=== PATIENT | male | born 1970 | race Caucasian/White ===

== ENCOUNTER 2022-12-03 10:42 | Observation (INO) | payer SELFPAY ==
[2022-12-03] VITALS (48 sets, daily range): BP systolic 131–164; BP diastolic 82–98; PULSE 72–108; RESP 2–23; TEMP 36.6–36.8; O2SAT 91–97; BMI 33.7; BMI 37.2
--- NOTE | 2022-12-03 10:58 | ED.GENADUL1 ---
HPI - General Adult General Chief complaint: Dizziness Stated complaint: DIZZINESS Time Seen by Provider: 12/03/22 10:58 Source: patient Mode of arrival: walk-in Limitations: no limitations History of Present Illness HPI narrative: Patient presents to emergency department complaining of feeling where. He states he feels like his perception is not right. He feels like if he was on drugs. He states at 10:30 this morning he was driving and started feeling as if he were dizzy and sick to his perception was not right he was maybe a little bit confused and had different perception of things with his speech is not normal but he knowns exactly what he was doing and feeling that everything was not his normal self. He describes everything as if things were coming fast at him but he is being slower to respond. He states he feels like if he was on an acid trip . He has a history of diabetes his sugar was checked 162. He is moving here from [place]. He denies using any illegal drugs. He denies any trauma. He denies any paresthesias, or weakness. He denies any dysarthria. Denies any difficulty swallowing. He denies any chest pain, shortness of breath. He has not been sick with any nausea, vomiting, diarrhea, or abdominal pain. He states he has a history of early Parkinson's, She has taken medications and see someone at [facility] for the Parkinson's. Related Data Allergies Allergy/AdvReac Type Severity Reaction Status Date / Time No Known Drug Allergies Allergy Verified 12/03/22 10:56 Review of Systems ROS Status of ROS 10 or more systems reviewed and unremarkable except as noted in history and below PFSH PFS Social History Smoking status: Former smoker Exam Narrative Exam Narrative: Nurses notes and vital signs reviewed and patient is not hypoxic. General: Nontoxic, Well-appearing and in no apparent distress. Skin: Warm, dry, no pallor noted. No Rash Head: Normocephalic, atraumatic. Neck: Supple, non-tender. Eye: Pupils are equal, round and EOMI. No scleral icterus. Ears, Nose, Mouth, and Throat: TM clear, no posterior oropharynx erythema or nasal mucosal hypertrophy, uvula is mid-line Oral mucosa is moist Cardiovascular: regular tachycardia without murmur, gallop or rub. Respiratory: No accessory muscle use or respiratory distress. Lungs are clear to auscultation, no wheezing, rales or rhonchi Chest Wall: no tenderness Back: No midline thoracic or lumbar vertebral tenderness. No CVA tenderness Musculoskeletal: normal ROM, no calf or popliteal tenderness, no lower extremity edema/swelling GI: Abdomen is soft, non-distended. Normal bowel sounds. No masses appreciated. No tenderness to palpation. No rebound, guarding, or rigidity noted. Neurological: A&O x4. NIHSS-0 No cranial nerve dysfunction observed. No truncal ataxia. Moves all extremities. Sensation intact. Psychiatric: Cooperative and interactive. Normal mood and affect. Constitutional Vital Signs, click to edit/add: Last Vital Signs Temp 98.1 F 12/03/22 10:50 Pulse 81 12/03/22 15:00 Resp 15 12/03/22 15:00 BP 152/86 H 12/03/22 14:16 Pulse Ox 94 L 12/03/22 15:00 O2 Del Method Room Air 12/03/22 14:16 Course Vital Signs Vital signs: Vital Signs Temperature 98.1 F 12/03/22 10:50 Pulse Rate 108 H 12/03/22 10:50 Respiratory Rate 18 12/03/22 10:50 Blood Pressure 164/98 H 12/03/22 10:50 Pulse Oximetry 94 L 12/03/22 10:50 Oxygen Delivery Method Room Air 12/03/22 10:50 Temperature 98.1 F 12/03/22 10:50 Pulse Rate 81 12/03/22 15:00 Respiratory Rate 15 12/03/22 15:00 Blood Pressure 152/86 H 12/03/22 14:16 Pulse Oximetry 94 L 12/03/22 15:00 Oxygen Delivery Method Room Air 12/03/22 14:16 Medical Decision Making [facility] Narrative Medical decision making narrative: Patient had an IV established, glucose 162. Patient was immediately taken for CT of the brain stroke protocol which was negative. Studies were done. Patient's BUN/creatinine are elevated. He was given 2 L of normal saline. His sister who has arrived states the patient is normally sharp and very outgoing. Sister and niece states this is not like him. He states he seems to be slower to respond. I discussed all of the results with patient, and sister at the bedside. all results of studies were discussed with Dr. Har[facility] who advised the patient can be loaded with aspirin 325 mg and Plavix 300 mg after a swallow study is done. the patient is not a TPA candidate at this time, the patient would not benefit from transferring to the stroke center as he is not a candidate for any acute intervention. The patient was discussed with Dr. Etienne who will admit the patient for the rest of the CVA workup. Lab Data Lab results reviewed: Yes I reviewed the patient's lab results Labs: Lab Results 12/03/22 12/03/22 12/03/22 Range/Units 10:59 11:30 14:05 WBC 7.6 (4.0-11.0) 10^3/uL RBC 4.87 (4.70-6.10) 10^6/uL Hgb 14.2 (14.0-18.0) g/dL Hct 41.2 L (42.0-54.0) % MCV 84.6 (80.0-94.0) fL MCH 29.2 (25.9-34.0) pg MCHC 34.5 (29.9-35.2) g/dL RDW 13.4 (11.0-15.0) % Plt Count 261 (150-450) 10^3/uL MPV 10.3 (9.5-13.5) fL Neut % (Auto) 58.7 (43.0-75.0) % Lymph % (Auto) 30.2 (20.5-60.0) % Kerr % (Auto) 7.6 (1.7-12.0) % Eos % (Auto) 2.4 (0.9-7.0) % Baso % (Auto) 0.8 (0.2-2.0) % Neut # (Auto) 4.5 (1.4-6.5) 10^3/uL Lymph # (Auto) 2.3 (1.2-3.8) 10^3/uL Kerr # (Auto) 0.6 (0.3-0.8) 10^3/uL Eos # (Auto) 0.2 (0.0-0.7) 10^3/uL Baso # (Auto) 0.1 (0.0-0.1) 10^3/uL Abs Immat Gran (auto) 0.02 (0.00-0.03) 10^3/uL Imm/Tot Granulo (auto) 0.3 (0.0-0.5) % PT 10.1 (9.0-11.6) sec INR 0.95 APTT 22.5 (22.3-36.2) sec Sodium 138 (136-145) mmol/L Potassium 4.5 (3.5-5.1) mmol/L Chloride 101 (98-107) mmol/L Carbon Dioxide 24.3 (21.0-32.0) mmol/L Anion Gap 17.2 BUN 24.0 H (7.0-18.0) mg/dL Creatinine 1.34 H (0.70-1.30) mg/dL Est GFR ( Amer) >60 (>=60) Est GFR (Non-Af Amer) 56 L (>=60) BUN/Creatinine Ratio 17.9 Glucose 220 H (74-106) mg/dL Calcium 9.0 (8.5-10.1) mg/dL Total Bilirubin 1.0 (0.2-1.0) mg/dL AST 21 (15-37) U/L ALT 28 (16-63) U/L Alkaline Phosphatase 74 (46-116) U/L Total Creatine Kinase 436 H* (39-308) U/L Myoglobin 242 H (16-96) ng/mL Troponin I High Sens 5.7 (4.0-76.1) pg/mL Total Protein 7.6 (6.4-8.2) g/dL Albumin 3.9 (3.4-5.0) g/dL Globulin 3.7 g/dL Albumin/Globulin Ratio 1.1 Urine Color Yellow (YELLOW) Urine Clarity Clear (CLEAR) Urine pH 6.5 (5.0-9.0) Ur Specific [place] 1.015 (1.005-1.025) Urine Protein 100 A (NEG/TRACE) mg/dL Urine Glucose (UA) 100 A (NEGATIVE) mg/dL Urine Ketones 40 A (NEGATIVE) mg/dL Urine Occult Blood Negative (NEGATIVE) Urine Nitrite Negative (NEGATIVE) Urine Bilirubin Negative (NEGATIVE) Urine Urobilinogen 4.0 A (0.2-1.0) EU/dL Ur Leukocyte Esterase Negative (NEGATIVE) Urine RBC None seen (0-2) #/HPF Urine WBC None seen (NONE SEEN) #/HPF Ur Squamous Epith Cells None seen (NONE/RARE) #/LPF Urine Crystals None seen (None Seen) #/HPF Urine Bacteria None seen (NONE SEEN) #/HPF Urine Casts None seen (NONE SEEN) #/LPF Urine Mucus None seen (NONE SEEN) Ur Culture Indicated? No Urine Opiates Screen Negative (NEGATIVE) Ur Buprenorphine Scrn Negative (NEGATIVE) Ur Oxycodone Screen Negative (NEGATIVE) Urine Methadone Screen Negative (NEGATIVE) Ur Propoxyphene Screen Negative (NEGATIVE) Ur Barbiturates Screen Negative (NEGATIVE) U Tricyclic Antidepress Negative (NEGATIVE) Ur Phencyclidine Scrn Negative (NEGATIVE) Ur Amphetamines Screen Negative (NEGATIVE) U Methamphetamines Scrn Negative (NEGATIVE) U Benzodiazepines Scrn Negative (NEGATIVE) Urine Cocaine Screen Negative (NEGATIVE) U Cannabinoids Screen Positive A (NEGATIVE) POC Glucose 162 H (74-106) mg/dL ECG Data Attestation: I personally reviewed and interpreted this ECG as follows: Interpretation: Sinus tachycardia. No acute ischemic changes. Discharge Plan Discharge Chief Complaint: Dizziness Clinical Impression: Acute confusion, Cerebrovascular accident Patient Disposition: Admitted as Observation Time of Disposition Decision: 16:28 Condition: Good Referrals: Physician,Non-Staff, MD [Primary Care Provider] - 1 week
[2022-12-03 11:07] LABS: Glucometer 162 mg/dL (74-106)
--- NOTE | 2022-12-03 11:14 | ECG_ITS ---
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
--- NOTE | 2022-12-03 11:14 | CT_ITS ---
The [address] [address] Patient Name: SHAWANDA CURTIS MRN: [id number] date: 1970 Sex: M Assigned Patient Location: ER Current Patient Location: ER Accession/Order Number: [id number] Exam Date: 12/03/2022 11:35 Report Date: 12/03/2022 12:11 At the request of: FLORENCIA KIM Procedure: CT stroke head/brain wo con HEAD CT WITHOUT CONTRAST: 12/03/2022 11:35 AM EDT Clinical Data: dizziness, confusion Comparison: No previous Unenhanced axial data from base to vertex. Some beam hardening artifact in the posterior fossa. INTRA-AXIAL: No acute hemorrhage. No obvious acute infarct. EXTRA-AXIAL: No acute hemorrhage. No focal fluid collection. BRAIN VOLUME: Mild atrophy VENTRICLES: No hydrocephalus PARANASAL SINUSES: No air-fluid levels in the included aspects. MASTOIDS: Clear. CALVARIUM: No acute finding. EXTRACALVARIAL: No acute findings CT/CT stroke head/brain wo con IMPRESSION: 1. No distinct evidence of acute intracranial hemorrhage. No distinct evidence of acute infarction. All CT scans at this facility use dose modulation, iterative reconstruction, and/or weight based dosing when appropriate to reduce radiation dose to as low as reasonably achievable. Electronically authenticated by: ABILIO DURAN Date: 12/03/2022 12:11
--- NOTE | 2022-12-03 11:14 | CT_ITS ---
The [address] [address] Patient Name: SHAWANDA CURTIS MRN: [id number] date: 1970 Sex: M Assigned Patient Location: ER Current Patient Location: .MAIN Accession/Order Number: [id number] Exam Date: 12/03/2022 11:35 Report Date: 12/03/2022 15:35 At the request of: FLORENCIA KIM Procedure: CT angio neck CT ANGIOGRAPHY NECK: 12/03/2022 11:35 AM EDT Clinical History:cva Comparison: None available . Contrast-enhanced helically acquired data per protocol. From this dataset volumetric recons in MIP mode were generated and reviewed. 3-D images were rendered on a separate workstation. NASCET criteria were utilized. INNOMINATE: Unremarkable RIGHT SUBCLAVIAN: Somewhat obscured at its origin by artifact from juxtaposed dense venous contrast. Further distally the vessel is unremarkable. RIGHT VERTEBRAL: A medium-sized blood vessel and is grossly unremarkable throughout its extradural course. LEFT SUBCLAVIAN: Widely patent LEFT VERTEBRAL: Modestly to moderately narrowed at its origin. Further distally it is a medium-sized blood vessel and is codominant to its right-sided counterpart. It is unremarkable throughout the rest of its extradural course. RIGHT CAROTID SYSTEM: CCA is widely patent. Very mild soft disease at the bifurcation and proximal ICA. Less than 10% stenosis cervical ICA LEFT CAROTID SYSTEM: CCA is widely patent. Slight soft disease at the bifurcation. 0% stenosis cervical ICA. The ECA is widely patent. CT/CT angio neck IMPRESSION: 1. Left vertebral artery is modestly to moderately narrowed at its origin but is otherwise unremarkable. Vertebral arteries are medium-sized codominant blood vessels. The right is unremarkable. 2. No moderate or significant disease at either cervical carotid system. All CT scans at this facility use dose modulation, iterative reconstruction, and/or weight based dosing when appropriate to reduce radiation dose to as low as reasonably achievable. Electronically authenticated by: ABILIO DURAN Date: 12/03/2022 15:35
--- NOTE | 2022-12-03 11:14 | CT_ITS ---
The [address] [address] Patient Name: SHAWANDA CURTIS MRN: [id number] date: 1970 Sex: M Assigned Patient Location: ER Current Patient Location: ER Accession/Order Number: [id number] Exam Date: 12/03/2022 11:35 Report Date: 12/03/2022 15:42 At the request of: FLORENCIA KIM Procedure: CT angio head CTA HEAD WITH CONTRAST: 12/03/2022 11:35 AM EDT History: cva Comparison: None available . Correlation with neck CTA same date Contrast-enhanced helically acquired data per systemic arterial protocol. From the base data set, volumetric recons in MIP mode were generated and reviewed. 3-D images were rendered on a separate workstation. VERTEBRALS: Patent. The right moderately tapers distal to the takeoff of the PICA. BASILAR : A medium-sized blood vessel and widely patent SUPERIOR CEREBELLARS: Patent and symmetric origins and proximal aspects POSTERIOR CEREBRALS: P1 and P2 segments are patent and symmetric. INTRACRANIAL ICAs: Patent and symmetric. ANTERIOR CEREBRALS: A1 segments are patent with the right slightly dominant over the left. Acomm appears is obliquely oriented and is patent. The A2 segments are patent and symmetric. MIDDLE CEREBRALS: M1 segments are patent. There is concentric moderate to significant narrowing proximal left M1. This is best seen on sagittal recons Insular loops are patent bilaterally. P-COMMS: Not seen OTHER: None CT/CT angio head IMPRESSION: 1. Moderate to significant short segment concentric narrowing left M1. All CT scans at this facility use dose modulation, iterative reconstruction, and/or weight based dosing when appropriate to reduce radiation dose to as low as reasonably achievable. Electronically authenticated by: ABILIO DURAN Date: 12/03/2022 15:42
--- NOTE | 2022-12-03 11:14 | XR_ITS ---
The [address] [address] Patient Name: SHAWANDA CURTIS MRN: [id number] date: 1970 Sex: M Assigned Patient Location: ER Current Patient Location: ER Accession/Order Number: [id number] Exam Date: 12/03/2022 11:32 Report Date: 12/03/2022 12:04 At the request of: FLORENCIA KIM Procedure: XR chest 1V EXAM: XR chest 1V HISTORY: cva COMPARISON: None. TECHNIQUE: Single view of the chest FINDINGS: Low lung volumes. Heart size normal given technique. No focal consolidation, pleural effusion, pulmonary congestion or pneumothorax. XR/XR chest 1V IMPRESSION: No acute findings. Electronically authenticated by: DUNCAN JONAS Date: 12/03/2022 12:04
--- NOTE | 2022-12-03 11:42 | PC.NURSE ---
Pt arrives with a mild shuffling type gait
[2022-12-03 11:54] LABS: Basophils Absolute Auto 0.1 10^3/uL (0.0-0.1); Basophils Percent Auto 0.8 % (0.2-2.0); Eosinophils Absolute Auto 0.2 10^3/uL (0.0-0.7); Eosinophils Percent Auto 2.4 % (0.9-7.0); Hematocrit 41.2 % (42.0-54.0); Hemoglobin 14.2 g/dL (14.0-18.0); Immature Granulocytes Abs Auto 0.02 10^3/uL (0.00-0.03); Immature Granulocytes Pct Auto 0.3 % (0.0-0.5); Lymphocytes Absolute Auto 2.3 10^3/uL (1.2-3.8); Lymphocytes Percent Auto 30.2 % (20.5-60.0); Mean Corpuscular HGB Conc 34.5 g/dL (29.9-35.2); Mean Corpuscular Hemoglobin 29.2 pg (25.9-34.0); Mean Corpuscular Volume 84.6 fL (80.0-94.0); Mean Platelet Volume 10.3 fL (9.5-13.5); Monocytes Absolute Auto 0.6 10^3/uL (0.3-0.8); Monocytes Percent Auto 7.6 % (1.7-12.0); Neutrophils Absolute Auto 4.5 10^3/uL (1.4-6.5); Neutrophils Percent Auto 58.7 % (43.0-75.0); Platelet Count 261 10^3/uL (150-450); Red Blood Count 4.87 10^6/uL (4.70-6.10); Red Cell Distribution Width 13.4 % (11.0-15.0); White Blood Count 7.6 10^3/uL (4.0-11.0)
[2022-12-03 12:06] LABS: INR 0.95; Partial Thromboplastin Time 22.5 sec (22.3-36.2); Prothrombin Time 10.1 sec (9.0-11.6)
[2022-12-03 12:57] LABS: Alanine Aminotransferase 28 U/L (16-63); Albumin Globulin Ratio 1.1; Albumin Level 3.9 g/dL (3.4-5.0); Alkaline Phosphatase 74 U/L (46-116); Anion Gap 17.2; Aspartate Amino Transferase 21 U/L (15-37); BUN Creatinine Ratio 17.9; Carbon Dioxide 24.3 mmol/L (21.0-32.0); Chloride 101 mmol/L (98-107); Estimated GFR (African America >60 (>=60); Estimated GFR (Non-African Ame 56 (>=60); Globulin 3.7 g/dL; Glucose 220 mg/dL (74-106); Potassium 4.5 mmol/L (3.5-5.1); Sodium 138 mmol/L (136-145); Total Protein 7.6 g/dL (6.4-8.2); Troponin I High Sensitivity 5.7 pg/mL (4.0-76.1)
[2022-12-03] MEDS: 0.9 % SODIUM CHLORIDE 1,000 ML 999 ML IV (14:14)
[2022-12-03 14:29] LABS: Bilirubin Urine NEGATIVE (NEGATIVE); Blood Urine NEGATIVE (NEGATIVE); Clarity Urine CLEAR (CLEAR); Color Urine YELLOW (YELLOW); Glucose Urine UA 100 mg/dL (NEGATIVE); Ketones Urine 40 mg/dL (NEGATIVE); Leukocyte Esterase Urine NEGATIVE (NEGATIVE); Nitrite Urine NEGATIVE (NEGATIVE); Protein Urine 100 mg/dL (NEG/TRACE); Specific Gravity Urine 1.015 (1.005-1.025); pH Urine 6.5 (5.0-9.0)
[2022-12-03 14:31] LABS: Urine Microscopic Indicated YES
[2022-12-03 14:36] LABS: Bacteria Urine NONE SEEN #/HPF (NONE SEEN); Cast Seen? NONE SEEN #/LPF (NONE SEEN); Crystals Seen? None Seen #/HPF (None Seen); Mucus Urine NONE SEEN (NONE SEEN); RBC Urine NONE SEEN #/HPF (0-2); Squamous Epithelial Cell Urine NONE SEEN #/LPF (NONE/RARE); Urine Culture Indicated NO; WBC Urine NONE SEEN #/HPF (NONE SEEN)
[2022-12-03 14:41] LABS: Amphetamine Screen Urine NEGATIVE (NEGATIVE); Barbiturates Screen Urine NEGATIVE (NEGATIVE); Benzodiazepines Screen Urine NEGATIVE (NEGATIVE); Buprenorphine Screen Urine NEGATIVE (NEGATIVE); Cannabinoid Screen Urine POSITIVE (NEGATIVE); Cocaine Screen Urine NEGATIVE (NEGATIVE); Methadone Screen Urine NEGATIVE (NEGATIVE); Methamphetamines Screen Urine NEGATIVE (NEGATIVE); Opiate Screen Urine NEGATIVE (NEGATIVE); Oxycodone Screen Urine NEGATIVE (NEGATIVE); Phencyclidine Screen Urine NEGATIVE (NEGATIVE); Tricyclic Antidepressant Urine NEGATIVE (NEGATIVE)
--- NOTE | 2022-12-03 15:12 | PC.NURSE ---
pt states it feels like everything is pulsating .
[2022-12-03] MEDS: 0.9 % SODIUM CHLORIDE 1,000 ML 1000 ML IV (15:35)
[2022-12-03 16:13] LABS: Myoglobin 242 ng/mL (16-96)
[2022-12-03 16:15] LABS: Creatine Kinase 436 U/L (39-308)
--- NOTE | 2022-12-03 16:34 | PC.NURSE ---
Bedside swallow exam done at bedside. Pt swallows well both liquids and solids without any coughing or signs of aspiration. Dr Meza notified
[2022-12-03] MEDS: ASPIRIN 325 MG TABLET PO (16:42)
[2022-12-03] MEDS: CLOPIDOGREL BISULFATE 75 MG TABLET 300 MG PO (16:42)
--- NOTE | 2022-12-03 17:05 | CA_ITS ---
Patient: SHAWANDA CURTIS Exam Date: 12/04/2022 : 1970 Gender:M Ordering : DR Manny Etienne . Admission #: [id number] Family : Order #: [id number] CLICK HERE TO VIEW EXAM ECHOCARDIOGRAM REPORT PROCEDURE: CA ECHO DOPPLER COMPLETE INDICATIONS: Dyspnea, dizziness, diabetes COMPARISON: None. DESCRIPTION: COMPLETE ECHOCARDIOGRAM Real-time transthoracic echocardiography with 2D, M-mode, spectral and color flow Doppler performed. QUALITY: Technical quality was good. LEFT VENTRICLE: Normal chamber size. Mild concentric left ventricular hypertrophy. Normal systolic function. LV EF: Normal left ventricular ejection fraction, (>55%). DIASTOLIC: Diastolic function is indeterminate. ATRIAL SEPTUM: LEFT ATRIUM: Moderate dilatation. RIGHT ATRIUM: Normal chamber size. RIGHT VENTRICLE: Normal chamber size. Normal right ventricular systolic function. TRICUSPID VALVE: Normal mobility and thickness. No stenosis with trivial regurgitation. No evidence of pulmonary hypertension. RVSP 24 mmHg MITRAL VALVE: Normal mobility and thickness. No evidence of mitral valve stenosis. There is no mitral annular calcification. No mitral regurgitation. AORTIC VALVE: Normal trileaflet appearance. No visible sclerosis. Normal leaflet mobility. No evidence of aortic valve stenosis. No aortic regurgitation. AORTIC ROOT: Normal diameter and appearance. PULMONIC VALVE: Not well visualized. No stenosis. No regurgitation. PERICARDIUM: No evidence of pericardial effusion. IVC: Not well visualized. PLEURA: CONCLUSION: 1. Mild concentric left regular hypertrophy with normal systolic function. LVEF is 55 to 60%. 2. Normal right ventricular size and systolic function. 3. No significant valvular dysfunction. 4. Normal right-sided pressures. Adult Echocardiography Procedure Report Left Ventricle LVEDD (3.7 - 5.6 cm): 3.98 cm LVESD (2.2 - 4.0 cm): 2.55 cm LVIVS thickness (0.6 - 1.2 cm): 1.25 cm LVPW thickness (0.5 - 1.0 cm): 1.27 cm LVOT Max Gradient: 3 mm[Hg] Peak Velocity (LVOT): 92.80 cm/s LVOT Diameter 2.80 cm Left Ventricular Ejection Fraction: 55-60 % Left Atrium LA Volume Index (2D A2C): 39867 mm3 Left Atrium Systolic Dimension: 5.30 cm Mitral Valve MV E to A Ratio: 1.10 Mitral Valve A-Wave Peak Velocity: 76.50 cm/s Mitral Valve E-Wave Peak Velocity: 83.90 cm/s Right Ventricle Aorta AO Root Diam: 4.40 cm Aortic Valve AoV Area (Peak Eric): 5.39 cm2 Peak Velocity(Antegrade Flow): 106.00 cm/s Peak Gradient(Antegrade Flow): 4 mm[Hg] Tricuspid Valve Peak Velocity (Regurgitant Flow): 228.00 cm/s Peak Velocity: 50.30 cm/s Pulmonic Valve Peak Velocity: 97.00 cm/s, 106.00 cm/s Peak Gradient: 4 mm[Hg] Right Atrium Dictated by: Ramos Wild M.D. on 12/04/2022 at 17:33 Approved by: Ramos Wild M.D. on 12/04/2022 at 17:35
[2022-12-03] MEDS: LACTATED RINGER'S SOLUTION 1,000 ML 50 ML IV (19:04)
[2022-12-03 22:50] LABS: Glucometer 161 mg/dL (74-106)
[2022-12-03] MEDS: CARVEDILOL 3.125 MG TABLET PO (22:52)
[2022-12-03] MEDS: INSULIN ASPART 300 UNIT/3 ML PEN SUBQ (22:53)
[2022-12-04] VITALS (8 sets, daily range): BP systolic 114; BP diastolic 69; PULSE 60–80; RESP 16; TEMP 36.5; O2SAT 91–93
[2022-12-04 05:12] LABS: Anion Gap 15.3; BUN Creatinine Ratio 12.7; Calcium 8.5 mg/dL (8.5-10.1); Carbon Dioxide 24.2 mmol/L (21.0-32.0); Chloride 104 mmol/L (98-107); Estimated GFR (African America >60 (>=60); Estimated GFR (Non-African Ame >60 (>=60); Glucose 126 mg/dL (74-106); Potassium 3.5 mmol/L (3.5-5.1); Sodium 140 mmol/L (136-145)
[2022-12-04] MEDS: HYOSCYAMINE SULFATE 0.125 MG TAB.SUBL SL ×2 (07:31→10:52)
--- NOTE | 2022-12-04 08:00 | MR_ITS ---
The [address] [address] Patient Name: SHAWANDA CURTIS MRN: [id number] date: 1970 Sex: M Assigned Patient Location: MS Current Patient Location: MS Accession/Order Number: [id number] Exam Date: 12/04/2022 09:40 Report Date: 12/04/2022 10:49 At the request of: RAUL LÓPEZ Procedure: MR head/brain wo con EXAMINATION: MR head/brain wo con HISTORY: AMS COMPARISON: No relevant comparison available. TECHNIQUE: A variety of imaging planes and parameters were utilized for visualization of suspected pathology. Images were performed without contrast. FINDINGS: CEREBRUM: No edema, hemorrhage, mass, acute infarction, or inappropriate atrophy. CEREBELLUM: No edema, hemorrhage, mass, acute infarction, or inappropriate atrophy. BRAINSTEM: No edema, hemorrhage, mass, acute infarction, or inappropriate atrophy. CSF SPACES: Ventricles, cisterns, and sulci are appropriate for age. No hydrocephalus, subarachnoid hemorrhage, or mass. SKULL: No mass or other significant visible lesion. SINUSES: Small mucocele/retention cysts within maxillary sinuses. No fluid levels. ORBITS: Limited views are unremarkable. OTHER: Negative. MR/MR head/brain wo con IMPRESSION: 1. Normal MRI appearance of the brain. No specific findings to account for patient's symptoms. 2. Mild chronic sinusitis. Electronically authenticated by: ELIZA ABBOTT Date: 12/04/2022 10:49
[2022-12-04 08:03] LABS: Creatine Kinase 188 U/L (39-308)
[2022-12-04] MEDS: CARVEDILOL 3.125 MG TABLET PO (08:59)
[2022-12-04] MEDS: ASPIRIN 325 MG TABLET PO (09:30)
[2022-12-04] MEDS: CLOPIDOGREL BISULFATE 75 MG TABLET PO (09:30)
--- NOTE | 2022-12-04 09:35 | US_ITS ---
[address] [address] Patient Name: SHAWANDA CURTIS MRN: [id number] date: 1970 Sex: M Assigned Patient Location: MS Current Patient Location: MS Accession/Order Number: [id number] Exam Date: 12/04/2022 10:00 Report Date: 12/04/2022 10:50 At the request of: RAUL LÓPEZ Procedure: US venous doppler LE LT EXAMINATION: US venous doppler LE LT HISTORY: left leg edema COMPARISON: No relevant comparison available. FINDINGS: REGION: Left lower extremity. THROMBI: None. COMPRESSIBILITY: Normal compressibility. FLOW: Normal waveform and antegrade flow between 5 and 20 cm/s. OTHER: None. US/US venous doppler LE LT IMPRESSION: 1. No deep vein thrombus within the left lower extremity. Electronically authenticated by: ELIZA ABBOTT Date: 12/04/2022 10:50
--- NOTE | 2022-12-04 09:35 | PM.HP ---
H&P: HPI History of Present Illness Chief complaint: CONFUSED, CVA Narrative: Patient while driving had episode of confusion. Hard to focus. No focal neurological deficits, no difficulty with speech, no difficulty swallowing. With the symptoms he presented to the emergency room. CT scan was negative, consultation with telestroke recommended CT a. Did show some mild narrowing of the vertebral arteries but nothing will be done for that. Patient was observed overnight for further work-up. [facility] Social History Smoking status: Former smoker Do you think of yourself as: lesbian/scott/homosexual Gender Identity: male Meds Home Medications and Allergies Home Medications Medication Instructions Recorded Confirmed Type aspirin 325 mg tablet 325 mg PO DAILY #30 tabs 12/04/22 Rx carvedilol 3.125 mg tablet 3.125 mg PO BID #60 tabs 12/04/22 Rx clopidogrel 75 mg tablet 75 mg PO DAILY #30 tabs 12/04/22 Rx Allergies Allergy/AdvReac Type Severity Reaction Status Date / Time No Known Drug Allergies Allergy Verified 12/03/22 10:56 Exam Constitutional Vital Signs, click to edit/add: Last Vital Signs Temp 97.7 F 12/04/22 05:41 Pulse 65 12/04/22 08:00 Resp 16 12/04/22 08:00 BP 114/69 12/04/22 05:41 Pulse Ox 91 L 12/04/22 05:41 O2 Del Method Room Air 12/04/22 05:41 Documenting provider has reviewed patient's vital signs: yes Common normals: no apparent distress Chest Common normals: inspection of chest normal Respiratory Common normals: normal respiratory effort, no retractions and clear to auscultation bilaterally Cardio Common normals: regular rate, regular rhythm and no gallops Neuro Common normals: oriented x3, CN's II-XII intact bilaterally, moves all extremities, no focal motor deficits and no sensory deficits noted Results Labs Labs: Short CBC 12/03/22 Range/Units 11:30 WBC 7.6 (4.0-11.0) 10^3/uL Hgb 14.2 (14.0-18.0) g/dL Hct 41.2 L (42.0-54.0) % Plt Count 261 (150-450) 10^3/uL BMP 07/30/23 07/31/23 11:30 04:25 Sodium 138 140 Potassium 4.5 3.5 Chloride 101 104 Carbon Dioxide 24.3 24.2 BUN 24.0 H 15.0 Creatinine 1.34 H 1.18 Glucose 220 H 126 H Calcium 9.0 8.5 Cardiac Enzymes 12/03/22 12/04/22 Range/Units 11:30 04:25 Total Creatine Kinase 436 H* 188 (39-308) U/L Liver Function 12/03/22 Range/Units 11:30 Total Bilirubin 1.0 (0.2-1.0) mg/dL AST 21 (15-37) U/L ALT 28 (16-63) U/L Alkaline Phosphatase 74 (46-116) U/L Albumin 3.9 (3.4-5.0) g/dL Urine 12/03/22 Range/Units 14:05 Urine Color Yellow (YELLOW) Urine Clarity Clear (CLEAR) Urine pH 6.5 (5.0-9.0) Ur Specific [place] 1.015 (1.005-1.025) Urine Protein 100 A (NEG/TRACE) mg/dL Urine Glucose (UA) 100 A (NEGATIVE) mg/dL Assessment and Plan Assessment and Plan (1) Acute confusion: Plan Some tachycardia, respiratory suppression although that is improved, labile blood pressure, presented to the ER and has acute confusional state. Does have a moderate narrowing of left vertebral artery. At this point we will check MRI scan and echocardiogram. If those are both normal patient will be discharged home in improving condition. Medications see list. Follow-up with a PCP within the next week.
--- NOTE | 2022-12-04 09:44 | CM.NOTE ---
Rounds made with Dr. Etienne. Depending on MRI and Echo may potentially be discharged to home. Mr. Macias verbalizes understanding.
[2022-12-04] MEDS: INSULIN ASPART 300 UNIT/3 ML PEN SUBQ (10:54)
[2022-12-04 10:55] LABS: Glucometer 179 mg/dL (74-106)
--- NOTE | 2022-12-04 13:35 | PC.NURSE ---
Attempted to call patient. Left message to return call to schedule a follow-up appt. 12/04/22 @ 13:34 Qian Grimm
--- NOTE | 2022-12-04 14:57 | PC.NURSE ---
Spoke with patient. He asked to call himself and make the follow up appt. due to his tight schedule with work travel. I stressed the importance of getting an appt. made within a week from today. He understood and said he would call back to the med/surg floor with the date and time of his appt. His PCP is Dr. Robbin Cisse of [facility] [phone]
--- NOTE | 2022-12-04 15:10 | PC.NURSE ---
Patient called back with follow up appt. with his PCP Dr. Robbin Cisse - [facility]. Dec.06 @ 12:30pm
--- NOTE | 2022-12-06 16:28 | CM.DCFOLLOWU ---
Person spoke with:patient How are you feeling? well How is your pain? no pain Did you understand your discharge instructions? yes Do you have any questions about your discharge instructions? no Were you given any prescriptions at discharge? yes Were you able to get your prescriptions filled? yes Do you understand how to take your medications as ordered? yes Do you have any questions about your follow up appointment and do you plan to keep your follow up appointment? follow up with PCP today (12/06/22) but his PCP had no results, so he felt it was a waste of time and money for visit Is there anything else that you would like to discuss? no Questions/Comments/Concerns/Other: will follow up with director of floor to see if records can get sent to his PCP and will follow back up with patient.
== END 2022-12-04 12:16 | disposition home or self-care (01) ==
LOC: ER 16:55 → MS 17:26
PROVIDERS: Admitting Provider Family Medicine; Emergency Provider Emergency Medicine; Visit Provider Family Medicine
DX: R41.0 Disorientation, unspecified (principal); R00.0 Tachycardia, unspecified; R09.89 Other specified symptoms and signs involving the circulatory and respiratory systems; R60.0 Localized edema; E11.9 Type 2 diabetes mellitus without complications; Z87.891 Personal history of nicotine dependence; Z79.82 Long term (current) use of aspirin; Z79.899 Other long term (current) drug therapy
CPT/HCPCS: 36415; 70450; 70496; 70498; 70551; 71045; 80048; 80053; 80307; 81001; 81003; 82550; 82948; 83874; 84484; 85025; 85610; 85730; 93005; 93306; 93971; 94761; 96360; 96361; 99285; G0378; Q9967